=== PATIENT | male | born 1950 | race Caucasian/White ===

== ENCOUNTER 2018-04-19 07:34 | Day surgery (SDC) ==
[2018-04-19] MEDS: TETRACAINE 0.5% UNIT-DOSE OP PRN ×3 (08:43→09:51)
[2018-04-19] MEDS: BETADINE OPTH PREP OP PRN ×2 (08:43→09:40)
[2018-04-19] MEDS: CYCLOGYL 2% OPTH OP PRN ×3 (08:44→08:54)
[2018-04-19] MEDS ORDERED: ZOFRAN 4 MG/2 ML IVP ONE (08:48)
[2018-04-19] MEDS ORDERED: BSS WITH EPINEPHRINE OP ONE (08:48)
[2018-04-19] MEDS ORDERED: BRIMONIDINE TARTRATE 0.2% OPTH SOL OP PRN (08:48)
[2018-04-19] MEDS ORDERED: DEX-MOXI-KETOR OPTH INJ 1/0.5/0.4 MG/ML IO ONE (08:48)
[2018-04-19] MEDS ORDERED: LIDOCAINE 1%/PHENYLEPHRINE 1.5% BSS (SURGERY) INTRAOCULA ONE (08:48)
[2018-04-19 08:53] VITALS: TEMP 97.8
[2018-04-19] MEDS ORDERED: SUBLIMAZE ONE (09:50)
[2018-04-19] MEDS ORDERED: VERSED ONE (09:50)
[2018-04-20 11:45] VITALS: BP 114/56
== END 2018-04-19 11:05 | disposition home or self-care (01) ==
LOC: SURG 07:34
PROVIDERS: ATTEND Ophthalmology
DX: H26.9 Unspecified cataract (principal)

== ENCOUNTER 2018-05-24 08:11 | Day surgery (SDC) ==
[2018-05-24] MEDS: BETADINE OPTH PREP OP PRN ×2 (09:05→09:40)
[2018-05-24] MEDS: TETRACAINE 0.5% UNIT-DOSE OP PRN ×3 (09:05→09:55)
[2018-05-24] MEDS: CYCLOGYL 2% OPTH OP PRN ×3 (09:06→09:16)
[2018-05-24] MEDS ORDERED: LIDOCAINE 1% 20 ML MDV ID STA (09:14)
[2018-05-24] MEDS ORDERED: ZOFRAN 4 MG/2 ML IVP ONE (09:14)
[2018-05-24] MEDS ORDERED: BRIMONIDINE TARTRATE 0.2% OPTH SOL OP PRN (09:14)
[2018-05-24] MEDS: DEX-MOXI-KETOR OPTH INJ 1/0.5/0.4 MG/ML IO ONE ×2 (09:49→09:55)
[2018-05-24] MEDS: BSS WITH EPINEPHRINE OP ONE ×2 (09:49→09:55)
[2018-05-24] MEDS: LIDOCAINE 1%/PHENYLEPHRINE 1.5% BSS (SURGERY) INTRAOCULA ONE ×2 (09:49→09:55)
[2018-05-24] MEDS ORDERED: VERSED ONE (09:51)
[2018-05-24] MEDS ORDERED: ZOFRAN 4 MG/2 ML ONE (09:51)
[2018-05-24] MEDS ORDERED: SUBLIMAZE ONE (09:51)
[2018-05-25 12:36] VITALS: BP 132/67
[2018-05-25 13:22] VITALS: TEMP 98.7
== END 2018-05-24 11:00 | disposition home or self-care (01) ==
LOC: SURG 08:11
PROVIDERS: ATTEND Ophthalmology
DX: H25.12 Age-related nuclear cataract, left eye (principal)